=== PATIENT | male | born 1990 | race Caucasian/White ===

== ENCOUNTER 2017-07-31 20:36 | Emergency (ER) | payer OTHER ==
[~2017-07-31] VITALS: Ht 182.9 cm; Wt 103.7 kg
[2017-07-31 21:20] LABS: HEMATOCRIT 44.2 % (38.0-50.0); MCH 30.8 PG (29.0-34.0); MCHC 34.6 G/DL (30.0-36.0); MCV 88.9 FL (86-99); PLATELET COUNT 204 K/uL (156-360); RBC DIS.WIDTH-CV 11.6 % (11.8-14.6); RBC DIS.WIDTH-SD 37.1 % (39-53); RED BLOOD COUNT 4.97 M/uL (4.00-5.50)
[2017-07-31 21:29] LABS: CHLORIDE 105 mEq/L (99-109); SODIUM 141 mEq/L (136-147)
[2017-07-31 21:31] LABS: GLUCOSE 90 mg/dL (70-99)
[2017-07-31 21:32] LABS: ANION GAP 9 MEQ/L (2-14)
[2017-07-31 21:33] LABS: TOTAL BILIRUBIN 0.3 mg/dL (0.0-1.0)
[2017-07-31 21:35] LABS: ALKALINE PHOSPHATASE 72 IU/L (3-129); GFR ESTIMATE (CALCULATED) > 59 mL/min/
[2017-07-31 21:36] LABS: UREA NITROGEN (BUN) 8 mg/dL (9-23)
[2017-07-31 22:10] LABS: D-DIMER ELISA < 150.00 ng/mLDDU (<230)
[2017-07-31] MEDS ORDERED: PHENERGAN-CODE120 ML PO (22:42)
[2017-07-31 23:03] VITALS: BP 122/62
== END 2017-07-31 23:09 | disposition home or self-care (01) ==
LOC: EME 20:36 → EXP 20:36
PROVIDERS: Physician Assistant
DX: J40 Bronchitis, not specified as acute or chronic (principal); R04.2 Hemoptysis; R10.9 Unspecified abdominal pain; R11.10 Vomiting, unspecified; Z87.891 Personal history of nicotine dependence
CPT/HCPCS: 71020; 80053; 85027; 85379; 99281; 99283

== ENCOUNTER 2017-08-23 02:04 | Emergency (ER) | payer OTHER ==
[~2017-08-23] VITALS: Ht 182.9 cm; Wt 102.1 kg
[~2017-08-23 02:04] MED LIST: PHENERGAN-CODE120 ML PO
[2017-08-23 03:19] LABS: ADD MIUA? NO; BILIRUBIN NEGATIVE; BLOOD NEGATIVE; COLOR STRAW ((YELLOW)); GLUCOSE (STRIP) NEGATIVE; KETONES NEGATIVE; LEUKOCYTES NEGATIVE; NITRITE NEGATIVE; PROTEIN (STRIP) NEGATIVE; SPECIFIC GRAVITY 1.009 (1.000-1.030); UROBILINOGEN 0.2 MG/DL (0.2-1.0)
[2017-08-23 03:32] LABS: AMPHETAMINE NEGATIVE (500 ng/mL); BARBITURATES NEGATIVE (200 ng/mL); BENZODIAZEPINES NEGATIVE (150 ng/mL); COCAINE NEGATIVE (150 ng/mL); INTERNAL CONTROLS VALID? YES; METHADONE NEGATIVE (200 ng/mL); METHAMPHETAMINE NEGATIVE (500 ng/mL); OPIATES (MORPHINE) NEGATIVE (100 ng/mL); OXYCODONE NEGATIVE (100 ng/mL); PHENCYCLIDINE NEGATIVE (25 ng/mL); PROPOXYPHENE NEGATIVE (300 ng/mL); THC CANNABINOIDS NEGATIVE (50 ng/mL); TRICYCLIC ANTIDEPRESSANTS NEGATIVE (300 ng/mL)
[2017-08-23 03:51] LABS: HEMATOCRIT 45.8 % (38.0-50.0); MCH 30.6 PG (29.0-34.0); MCHC 34.3 G/DL (30.0-36.0); MCV 89.3 FL (86-99); MEAN PLAT.VOLUME 9.4 uM^3 (9.0-12.4); PLATELET COUNT 244 K/uL (156-360); RBC DIS.WIDTH-CV 11.7 % (11.8-14.6); RBC DIS.WIDTH-SD 37.9 % (39-53); RED BLOOD COUNT 5.13 M/uL (4.00-5.50); WHITE BLOOD COUNT 9.3 K/uL (4.1-10.2)
[2017-08-23 04:02] LABS: CHLORIDE 109 mEq/L (99-109); POTASSIUM 4.1 mEq/L (3.7-5.4); SODIUM 141 mEq/L (136-147)
[2017-08-23 04:04] LABS: GLUCOSE 114 mg/dL (70-99)
[2017-08-23 04:05] LABS: ANION GAP 11 MEQ/L (2-14)
[2017-08-23 04:06] LABS: TOTAL BILIRUBIN 0.2 mg/dL (0.0-1.0)
[2017-08-23 04:07] LABS: ALKALINE PHOSPHATASE 67 IU/L (3-129); SERUM ETHYL ALCOHOL 123 mg/dL
[2017-08-23 04:08] LABS: GFR ESTIMATE (CALCULATED) > 59 mL/min/
[2017-08-23 04:09] LABS: UREA NITROGEN (BUN) 11 mg/dL (9-23)
[2017-08-23 05:23] VITALS: BP 119/80
== END 2017-08-23 05:24 | disposition home or self-care (01) ==
LOC: EME 02:04
PROVIDERS: Emergency Medicine
DX: F10.14 Alcohol abuse with alcohol-induced mood disorder (principal); Y90.6 Blood alcohol level of 120-199 mg/100 ml; F84.0 Autistic disorder; Z87.891 Personal history of nicotine dependence
CPT/HCPCS: 80053; 81003; 85027; 90839; 99281; 99285; G0480

== ENCOUNTER 2017-08-23 11:47 | Emergency (ER) | payer OTHER ==
[~2017-08-23] VITALS: Ht 182.9 cm; Wt 99.7 kg
[2017-08-23 12:33] LABS: EOSINOPHIL (%) 0.2 % (0-5); HEMATOCRIT 45.4 % (38.0-50.0); IMMATURE GRANULOCYTE (%) 0.7 % (0.0-0.7); IMMATURE GRANULOCYTE COUNT 0.1 K/uL; INSTRUMENT ABS NEUTROPHIL CT 7.9 K/uL; LYMPHOCYTE COUNT 2.1 K/uL (1.0-2.8); MCH 30.5 PG (29.0-34.0); MCHC 34.1 G/DL (30.0-36.0); MCV 89.2 FL (86-99); MEAN PLAT.VOLUME 9.5 uM^3 (9.0-12.4); MONOCYTE (%) 7.5 % (3-12); MONOCYTE COUNT 0.8 K/uL (0-0.8); NEUTROPHIL (%) 72.1 % (45-76); NEUTROPHIL COUNT 7.9 K/uL (1.8-6.4); PLATELET COUNT 248 K/uL (156-360); RBC DIS.WIDTH-CV 11.9 % (11.8-14.6); RBC DIS.WIDTH-SD 38.2 % (39-53); RED BLOOD COUNT 5.09 M/uL (4.00-5.50)
[2017-08-23 12:44] LABS: CHLORIDE 107 mEq/L (99-109)
[2017-08-23 12:45] LABS: SODIUM 145 mEq/L (136-147)
[2017-08-23 12:46] LABS: GLUCOSE 131 mg/dL (70-99)
[2017-08-23 12:48] LABS: ANION GAP 15 MEQ/L (2-14)
[2017-08-23 12:49] LABS: SERUM ETHYL ALCOHOL < 10 mg/dL
[2017-08-23 12:50] LABS: GFR ESTIMATE (CALCULATED) > 59 mL/min/
[2017-08-23 12:52] LABS: UREA NITROGEN (BUN) 10 mg/dL (9-23)
[2017-08-23 12:53] LABS: SALICYLATE < 5.0 MG/DL (15-30)
[2017-08-23 13:08] LABS: ADD MIUA? NO; BILIRUBIN NEGATIVE; BLOOD NEGATIVE; COLOR YELLOW ((YELLOW)); GLUCOSE (STRIP) NEGATIVE; KETONES NEGATIVE; LEUKOCYTES NEGATIVE; NITRITE NEGATIVE; PROTEIN (STRIP) NEGATIVE; SPECIFIC GRAVITY 1.027 (1.000-1.030); UROBILINOGEN 0.2 MG/DL (0.2-1.0)
[2017-08-23 13:18] LABS: AMPHETAMINE NEGATIVE (500 ng/mL); BARBITURATES NEGATIVE (200 ng/mL); BENZODIAZEPINES NEGATIVE (150 ng/mL); COCAINE NEGATIVE (150 ng/mL); INTERNAL CONTROLS VALID? YES; METHADONE NEGATIVE (200 ng/mL); METHAMPHETAMINE NEGATIVE (500 ng/mL); OPIATES (MORPHINE) NEGATIVE (100 ng/mL); OXYCODONE NEGATIVE (100 ng/mL); PHENCYCLIDINE NEGATIVE (25 ng/mL); PROPOXYPHENE NEGATIVE (300 ng/mL); THC CANNABINOIDS NEGATIVE (50 ng/mL); TRICYCLIC ANTIDEPRESSANTS NEGATIVE (300 ng/mL)
[2017-08-23 15:05] VITALS: BP 114/72
== END 2017-08-23 15:05 | disposition home or self-care (01) ==
LOC: EME 11:47
PROVIDERS: Emergency Medicine
DX: F41.9 Anxiety disorder, unspecified (principal); F32.9 Major depressive disorder, single episode, unspecified; F43.21 Adjustment disorder with depressed mood; F10.99 Alcohol use, unspecified with unspecified alcohol-induced disorder; F60.9 Personality disorder, unspecified; S60.812A Abrasion of left wrist, initial encounter; S60.811A Abrasion of right wrist, initial encounter; X78.9XXA Intentional self-harm by unspecified sharp object, initial encounter; F84.0 Autistic disorder; F17.200 Nicotine dependence, unspecified, uncomplicated
CPT/HCPCS: 71010; 80048; 81003; 85025; 90837; 99281; 99285; G0480